=== PATIENT | female | born 1955 | race Caucasian/White ===

== ENCOUNTER 2017-08-03 10:58 | Outpatient (CLI) | payer BC | END 2017-08-03 10:59 | disposition home or self-care (01) | LOC: BICMAMMO 10:58 | PROVIDERS: ATTEND Obstetrics & Gynecology | DX: Z12.31 Encounter for screening mammogram for malignant neoplasm of breast (principal); R92.1 Mammographic calcification found on diagnostic imaging of breast; Z80.3 Family history of malignant neoplasm of breast | CPT/HCPCS: 77063; 77067 ==

== ENCOUNTER 2018-09-28 16:02 | Outpatient (CLI) | payer BC | END 2018-09-28 16:03 | disposition home or self-care (01) | LOC: BICMAMMO 16:02 | PROVIDERS: ATTEND Obstetrics & Gynecology | DX: Z53.9 Procedure and treatment not carried out, unspecified reason (principal) | CPT/HCPCS: 77063; 77067 ==

== ENCOUNTER 2019-08-02 08:51 | Outpatient (CLI) | payer BC ==
--- NOTE | 2019-08-02 09:19 | BD ---
EXAM: DEXA bone density examination HISTORY: 64-year-old postmenopausal female for screening COMPARISON: 04/20/2007 FINDINGS: L1--bone mineral density 0.843 g/sq cm; T score -1.3 L2--bone mineral density 0.846 g/sq cm; T score -1.7 L3--bone mineral density 0.944 g/sq cm; T score -1.3 L4--bone mineral density 0.988 g/sq cm; T score -0.7 Total L1-L4--bone mineral density 0.902 g/sq cm; T score -1.3 Left femoral neck--bone mineral density0.647; T score -1.8 Total proximal left femur--bone mineral density 0.720; T score -1.8 IMPRESSION: Osteopenia. This patient has a 10 year WHO fracture risk of a major osteoporotic fracture of 13% and of a hip fracture of 2.0%.
== END 2019-08-02 08:52 | disposition home or self-care (01) ==
LOC: BICMAMMO 08:51
PROVIDERS: ATTEND Internal Medicine Rheumatology
DX: M85.89 Other specified disorders of bone density and structure, multiple sites (principal)
CPT/HCPCS: 77080

== ENCOUNTER 2019-09-06 12:35 | Outpatient (CLI) | payer BC ==
--- NOTE | 2019-09-06 14:15 | MRI ---
MRI OF THE LUMBAR SPINE WITHOUT CONTRAST: 08/10/19 INDICATIONS: Low back pain. No comparison. FINDINGS: The lumbar vertebrae maintain normal height and alignment. Vertebral body signal appears within eddie l range other than degenerative disc and end plate signal changes which are most pronounced at L4-5 and L5-S1. Findings at each level are noted. T12-L1: Mild diffuse disc bulge slightly more prominent to the right mildly flattens the anterior the sowmya sac. Mild right foraminal encroachment. No central canal stenosis. L1-2: Broad based disc bulge flattens the anterior thecal sac. More prominent paracentrally to the ri ght. Right foraminal encroachment due to the asymmetric disc bulge. No significant central canal sten osis. L2-3: Diffuse broad based disc bugle flattens the thecal sac. Moderate facet hypertrophy. Mild centra l canal stenosis. Mild right foraminal stenosis. L3-4: Mild diffuse disc bulge. Moderate facet and ligamentous hypertrophy. Mild central canal stenosi s. Mild right foraminal narrowing. Due to asymmetric disc bulge and facet hypertrophy. L4-5: Diffuse disc bugle with small central protrusion. Prominent facet hypertrophy. Mild central can al stenosis. Left foraminal stenosis primarily due to facet hypertrophy. L5-S1: A slight anterolisthesis. Mild diffuse disc bulge. Facet hypertrophy. No significant central c anal stenosis. Mild left foraminal narrowing due to facet hypertrophy and disc osteophyte complex. IMPRESSION: Multilevel degenerative disc changes with posterior disc bulge at all levels. The disc bulge is most pronounced at L4-5 where there is a small central protrusion and mild central canal stenosis. See rosette cription at each level above. POS: AH
== END 2019-09-06 12:36 | disposition home or self-care (01) ==
LOC: SCSMRI 12:35
PROVIDERS: ATTEND Orthopaedic Surgery
DX: M54.5 Low back pain (principal); M51.36 Other intervertebral disc degeneration, lumbar region; M48.061 Spinal stenosis, lumbar region without neurogenic claudication; M51.26 Other intervertebral disc displacement, lumbar region
CPT/HCPCS: 72148

== ENCOUNTER 2021-04-04 11:47 | Outpatient (CLI) | payer MEDICARE, BC | END 2021-04-04 11:48 | disposition home or self-care (01) | LOC: BICRAD 11:47 | DX: M46.1 Sacroiliitis, not elsewhere classified (principal) | CPT/HCPCS: 72220 ==

== ENCOUNTER 2022-03-09 15:22 | Outpatient (CLI) | payer MEDICARE, BC | END 2022-03-09 15:23 | disposition home or self-care (01) | LOC: BICRAD 15:22 | PROVIDERS: ATTEND Internal Medicine Rheumatology | DX: M25.531 Pain in right wrist (principal); M19.031 Primary osteoarthritis, right wrist; M25.831 Other specified joint disorders, right wrist ==

== ENCOUNTER 2022-10-19 12:36 | Outpatient (CLI) | payer MEDICARE, BC | END 2022-10-19 12:37 | disposition home or self-care (01) | LOC: BICMAMMO 12:36 | PROVIDERS: ATTEND Internal Medicine Endocrinology, Diabetes & Metabolism | DX: M85.89 Other specified disorders of bone density and structure, multiple sites (principal) | CPT/HCPCS: 77080 ==

== ENCOUNTER 2024-11-08 09:04 | Outpatient (CLI) | payer MEDICARE, BC | END 2024-11-08 09:05 | disposition home or self-care (01) | LOC: RAD 09:04 | PROVIDERS: ATTEND Internal Medicine Critical Care Medicine | DX: R06.00 Dyspnea, unspecified (principal); R06.9 Unspecified abnormalities of breathing; K44.9 Diaphragmatic hernia without obstruction or gangrene | CPT/HCPCS: 71046 ==

== ENCOUNTER 2025-01-25 10:39 | Outpatient (CLI) | payer MEDICARE, BC | END 2025-01-25 10:40 | disposition home or self-care (01) | LOC: BICMAMMO 10:39 | PROVIDERS: ATTEND Internal Medicine Rheumatology | DX: M81.0 Age-related osteoporosis without current pathological fracture (principal); M85.851 Other specified disorders of bone density and structure, right thigh; M85.852 Other specified disorders of bone density and structure, left thigh | CPT/HCPCS: 77080 ==